=== PATIENT | male | born 1985 | race Caucasian/White ===

== ENCOUNTER 2021-09-23 19:33 | Emergency (ER) | payer OTHER ==
--- NOTE | 2021-09-23 20:50 | NUR ---
CAALED TO TRIAGE AT 2020, 2030, AND 0. NO ANSWER. PT LWBS
== END 2021-09-23 20:45 | disposition left against medical advice (07) ==
LOC: MED 19:33
DX: N20.0 Calculus of kidney (principal); Z53.21 Procedure and treatment not carried out due to patient leaving prior to being seen by health care provider